=== PATIENT | female | born 1995 | race Two or more races ===

== ENCOUNTER 2019-07-16 20:22 | Emergency (ER) | payer OTHER ==
[~2019-07-16] VITALS: Ht 149.9 cm; Wt 42.2 kg
[2019-07-16 20:22] VITALS: BP 112/72
[2019-07-16] MEDS ORDERED: IBUPROFEN 400 MG TABLET PO ONE (21:00)
[2019-07-16] MEDS ORDERED: IBUPROFEN 400 MG TABLET ONE (21:34)
== END 2019-07-16 21:56 | disposition home or self-care (01) ==
LOC: ER 20:22
DX: S16.1XXA Strain of muscle, fascia and tendon at neck level, initial encounter (principal); V49.49XA Driver injured in collision with other motor vehicles in traffic accident, initial encounter; Y93.89 Activity, other specified; Y92.413 State road as the place of occurrence of the external cause; Y99.8 Other external cause status
CPT/HCPCS: 70450-TC; 72125-TC; 84703-TC